=== PATIENT | female | born 1995 | race American Indian/Alaskan Native ===

== ENCOUNTER 2021-03-23 15:06 | Emergency (ER) | payer MEDICAID ==
[2021-03-23 18:22] VITALS: BP 155/94
[2021-03-23 20:02] LABS: Bacteria,Urine 1+ /HPF (Negative); Bilirubin,Urine NEG (Negative); Blood,Urine MOD (Negative); Color,Urine Yellow (Yellow); Mucus,Urine 1+ /HPF; Urobilinogen,Urine < 2.0 mg/dL (<2.0)
[2021-03-23 20:03] LABS: WBC,Urine > 182.0 /HPF (0.0-6.0)
[2021-03-23 20:09] LABS: Eosinophils % (Auto) 0.2 % (0.0-4.3); Hematocrit 43.7 % (30.3-42.9); Hemoglobin 14.2 gm/dl (10.1-14.3); Lymphocytes # (Auto) 1.3 K/mm3 (1.2-5.4); Lymphocytes % (Auto) 15.1 % (13.4-35.0); Mean Corpuscular HGB Conc 33 % (30-34); Mean Corpuscular Volume 94 fl (79-97); Monocytes # (Auto) 0.6 K/mm3 (0.0-0.8); Platelet Count 242 K/mm3 (140-440); Red Blood Count 4.63 M/mm3 (3.65-5.03); Red Cell Distribution Width 14.3 % (13.2-15.2)
[2021-03-23 20:17] LABS: Alanine Aminotransferase 17 units/L (7-56); Albumin 4.6 g/dL (3.9-5); Blood Urea Nitrogen 7 mg/dL (7-17); Calcium 9.9 mg/dL (8.4-10.2); Hemolysis Index 5
[2021-03-23 20:24] LABS: BUN/Creatinine Ratio 14
[2021-03-23] MEDS ORDERED: levoFLOXacin 750 MG TAB PO STA (20:45)
[2021-03-23] MEDS ORDERED: HYDROcodone/ACETAMINOPHEN 5-325 MG TAB PO STA (20:45)
--- NOTE | 2021-03-23 21:30 | Emergency Department Report ---
ED Female HPI - General Chief complaint: Abdominal Pain Stated complaint: BLOOD IN URINE/BACK PAIN Time Seen by Provider: 03/23/21 20:45 Source: patient Mode of arrival: Ambulatory Limitations: No Limitations - History of Present Illness MD Complaint: dysuria -: Gradual, days(s) (3) Location: suprapubic Radiation: L flank Severity: mild, moderate Quality: burning Consistency: constant Worsens with: urination Are you Now?: No Associated Symptoms: abdominal pain (Flank pain ordered by), nausea/vomiting. denies: vaginal discharge, vaginal bleeding - Related Data Previous Rx's Medication Instructions Recorded Last Taken Type Ciprofloxacin HCl 500 mg PO BID #14 tab 03/23/21 Unknown Rx Phenazopyridine [Pyridium] 200 mg PO TID #9 tab 03/23/21 Unknown Rx Allergies Allergy/AdvReac Type Severity Reaction Status Date / Time No Known Allergies Allergy Verified 03/23/21 18:21 ED Review of Systems ROS: Stated complaint: BLOOD IN URINE/BACK PAIN Other details as noted in HPI Comment: All other systems reviewed and negative ED Past Medical Hx - Past Medical History Previous Medical History?: No - Surgical History Past Surgical History?: No - Medications Home Medications: Home Medications Medication Instructions Recorded Confirmed Last Taken Type Ciprofloxacin HCl 500 mg PO BID #14 tab 03/23/21 Unknown Rx Phenazopyridine [Pyridium] 200 mg PO TID #9 tab 03/23/21 Unknown Rx ED Physical Exam - General Limitations: No Limitations General appearance: alert, in no apparent distress - Head Head exam: Present: atraumatic, normocephalic - Eye Eye exam: Present: normal appearance, PERRL, EOMI Pupils: Present: normal accommodation - ENT ENT exam: Present: normal exam, normal orophraynx, mucous membranes moist - Neck Neck exam: Present: normal inspection - Respiratory Respiratory exam: Present: normal lung sounds bilaterally. Absent: respiratory distress - Cardiovascular Cardiovascular Exam: Present: regular rate, normal rhythm. Absent: systolic murmur, diastolic murmur, rubs, gallop - GI/Abdominal GI/Abdominal exam: Present: soft, tenderness, normal bowel sounds. Absent: hyperactive bowel sounds, hypoactive bowel sounds, organomegaly - Extremities Exam Extremities exam: Present: normal inspection, full ROM, normal capillary refill - Back Exam Back exam: Present: normal inspection. Absent: CVA tenderness (R), CVA te nderness (L) - Neurological Exam Neurological exam: Present: alert, oriented X3, CN II-XII intact, normal gait - Psychiatric Psychiatric exam: Present: normal affect, normal mood - Skin Skin exam: Present: warm, dry, intact, normal color. Absent: rash ED Course Vital Signs 03/23/21 03/23/21 18:18 21:24 Temperature 98.6 F Pulse Rate 93 H Respiratory 16 16 Rate Blood Pressure 155/94 O2 Sat by Pulse 100 Oximetry ED Medical Decision Making - Lab Data Result diagrams: 03/23/21 19:44 03/23/21 19:44 - Medical Decision Making This patient presents to the emergency department with symptoms consistent with acute uncomplicated cystitis. No systemic symptoms. Not septic. She is well- appearing. Modest suspicion for acute pyelonephritis given the appearance of occasional fevers sensation , CVA tenderness, or systemic features. Low suspicion for for kidney stone or infected stone. Not in age range for and her history and and presentation are complicated. No no indications for labs or imaging at this time. Critical care attestation.: If time is entered above; I have spent that time in minutes in the direct care of this critically ill patient, excluding procedure time. ED Disposition Clinical Impression: UTI (urinary tract infection) Disposition: HOME / SELF CARE / HOMELESS Is pt being admited?: No Does the pt Need Aspirin: No Condition: Stable Instructions: Pyelonephritis, Adult, Urinalysis Test, Urodynamic Testing, Urinary Tract Infection, Adult, [id number], Antibiotic Medicine, Adult, Abdominal Pain (ED) Additional Instructions: You have been evaluated emergency department today for abdominal pain which will be secondary to urinary tract infection. Your evaluation did not show evidence of any medical conditions requiring emergent intervention at this time however treatment is warranted antibiotics were prescribed. Your urinalysis showed that the white count was it was elevated and symptoms suggest that you may have developed pyelonephritis. please take all your medications and be sure to drink plenty of fluids. Please schedule an appointment with your primary care physician. Return to emergency department if you experience worsening uncontrolled pain, fevers of 100.4 or greater, recurrent vomiting, inability to tolerate food or fluids by mouth, bloody stools or vomit, black tarry stools, or any other concerning symptoms. Prescriptions: Ciprofloxacin HCl 500 mg PO BID #14 tab Phenazopyridine [Pyridium] 200 mg PO TID #9 tab Referrals: PETER MORRISON MD [Primary Care Provider] - 3-5 Days
== END 2021-03-23 21:59 | disposition home or self-care (01) ==
LOC: ED 15:06
DX: R30.0 Dysuria (principal); R10.9 Unspecified abdominal pain; R11.2 Nausea with vomiting, unspecified; N39.0 Urinary tract infection, site not specified
CPT/HCPCS: 36415; 80053; 81001; 84703; 85025; 99283